=== PATIENT | female | born 1995 | race Caucasian/White ===

== ENCOUNTER 2023-01-04 17:58 | Emergency (ER) | payer OTHER ==
[2023-01-04 18:10] VITALS: BP 123/79; PULSE 55; RESP 17; TEMP 98.9; BMI 29.2
[2023-01-04 18:59] LABS: BASO % 0.6 % (0-2.0); EOS % 0.9 % (0-4.5); HEMATOCRIT 40.5 % (32.4-45.2); HEMOGLOBIN 13.8 GM/dL (10.7-15.3); LYMPH % 38.2 % (8-40); MCH 31.8 pg (25.7-33.7); MCHC 34.1 g/dl (32.0-36.0); MEAN CELL VOLUME 93.2 fl (80-96); MEAN PLT VOLUME 7.4 fl (7.5-11.1); MONO % 7.7 % (3.8-10.2); NEUT % 52.6 % (42.8-82.8); PLATELET COUNT 296 10^3/uL (134-434); RBC 4.35 M/mm3 (3.60-5.2); RDW 12.7 % (11.6-15.6); WHITE BLOOD COUNT 6.6 K/mm3 (4.0-10.0)
[2023-01-04 20:08] LABS: CREATININE 0.9 mg/dL (0.55-1.3)
[2023-01-04 20:09] LABS: CALCIUM 9.2 mg/dL (8.5-10.1); PHOSPHOROUS 3.6 mg/dL (2.5-4.9); TOT PROT 7.6 g/dl (6.4-8.2)
[2023-01-04 20:10] LABS: ALBUMIN 4.3 g/dl (3.4-5.0); BLOOD UREA NITROGEN 15.4 mg/dL (7-18)
[2023-01-04 20:11] LABS: BILIRUBIN,TOTAL 0.9 mg/dL (0.2-1)
[2023-01-04 20:14] LABS: URIC ACID 4.4 mg/dL (2.6-7.2)
[2023-01-04 20:20] LABS: HIV INTERPRETATION NEGATIVE (NEGATIVE)
== END 2023-01-04 18:55 | disposition home or self-care (01) ==
LOC: JERFT 17:58 → JER 17:58 → JERFT 18:55
DX: S61.231A Puncture wound without foreign body of left index finger without damage to nail, initial encounter (principal); W46.0XXA Contact with hypodermic needle, initial encounter
CPT/HCPCS: 36415; 80053; 82465; 82977; 83615; 84100; 84478; 84550; 85025; 86704; 86803; 87340; 87389; 87517; 99283-25